=== PATIENT | male | born 2000 | race Two or more races ===

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

== ENCOUNTER 2019-07-22 03:32 | Emergency (ER) | payer OTHER | END 2019-07-22 07:00 | disposition home or self-care (01) | LOC: JER 03:32 ==

== ENCOUNTER 2023-10-09 21:59 | Emergency (ER) | payer OTHER ==
[2023-10-09 22:02] VITALS: BP 135/78; PULSE 78; RESP 18; TEMP 98.4; BMI 28.3
[2023-10-09] MEDS ORDERED: ALBUTEROL SO4 2.5/IPRATROPIUM 0.5 INH SOL 3 ML VIAL.NEB. NEB ONE ×2 (22:22→22:24)
[2023-10-09] MEDS ORDERED: ACETAMINOPHEN 500 MG TABLET (FP) PO ONE (22:22)
[2023-10-09] MEDS ORDERED: DEXAMETHASONE SOD PHOSPHATE 10 MG/1 ML VIAL IM ONE (22:22)
[2023-10-09] MEDS ORDERED: DEXAMETHASONE SOD PHOSPHATE 10 MG/1 ML VIAL ONE (22:24)
== END 2023-10-09 23:07 | disposition home or self-care (01) ==
LOC: JERFT 21:59
PROC: 3E023GC Introduction of Other Therapeutic Substance into Muscle, Percutaneous Approach (ICD-10-PCS; principal; 2023-10-09)
PROC: 3E0F7GC Introduction of Other Therapeutic Substance into Respiratory Tract, Via Natural or Artificial Opening (ICD-10-PCS; 2023-10-09)
DX: R06.02 Shortness of breath (principal); J06.9 Acute upper respiratory infection, unspecified; Z20.822 Contact with and (suspected) exposure to COVID-19
CPT/HCPCS: 0241U-QW; 99284-25; J1100